=== PATIENT | male | born 1980 | race African-American/Black ===

== ENCOUNTER 2016-06-03 09:48 | Emergency (ER) | payer SELFPAY ==
[~2016-06-03] VITALS: Ht 170.2 cm; Wt 136.0 kg
[2016-06-03 10:22] VITALS: BP 124/63
== END 2016-06-03 11:28 | disposition home or self-care (01) ==
LOC: ER 09:49
DX: F41.9 Anxiety disorder, unspecified (principal); K21.9 Gastro-esophageal reflux disease without esophagitis; R06.02 Shortness of breath; R53.1 Weakness; Z87.891 Personal history of nicotine dependence
CPT/HCPCS: 99284

== ENCOUNTER 2016-07-15 10:43 | Emergency (ER) | payer MEDICAID ==
[~2016-07-15] VITALS: Ht 175.3 cm; Wt 132.0 kg
[2016-07-15 10:55] VITALS: BP 146/80
== END 2016-07-15 15:36 | disposition home or self-care (01) ==
LOC: ER 14:09
DX: F41.9 Anxiety disorder, unspecified (principal); K21.9 Gastro-esophageal reflux disease without esophagitis
CPT/HCPCS: 99281; 99284

== ENCOUNTER 2016-11-24 07:39 | Emergency (ER) | payer MEDICAID ==
[~2016-11-24] VITALS: Ht 175.3 cm; Wt 132.0 kg
[2016-11-24] MEDS ORDERED: LORA0.5T2 PO (07:59)
[2016-11-24 08:25] VITALS: BP 143/95
== END 2016-11-24 11:00 | disposition home or self-care (01) ==
LOC: ER 08:11
DX: B08.4 Enteroviral vesicular stomatitis with exanthem (principal); F41.0 Panic disorder [episodic paroxysmal anxiety]; K21.9 Gastro-esophageal reflux disease without esophagitis; F12.10 Cannabis abuse, uncomplicated
CPT/HCPCS: 87070; 87430; 99284; Z7610